=== PATIENT | male | born 1965 | race Caucasian/White ===

== ENCOUNTER 2024-03-20 11:08 | Inpatient (IN) | payer BC, OTHER ==
[2024-03-20 14:19] LABS: APPEARANCE,URINE CLOUDY (CLEAR); BILIRUBIN,URINE NEGATIVE (NEGATIVE); COLOR,URINE YELLOW (YELLOW); GLUCOSE,URINE NEGATIVE (NEGATIVE); KETONES,URINE NEGATIVE (NEGATIVE); LEUKOCYTE ESTERASE,URINE NEGATIVE (NEGATIVE); NITRITE,URINE NEGATIVE (NEGATIVE); OCCULT BLOOD,URINE NEGATIVE (NEGATIVE); PH,URINE 5.5 (5.0-8.0); PROTEIN,URINE 30 mg/dL (NEGATIVE); UROBILINOGEN,URINE 0.2 EU/dL (0.2-1.0)
[2024-03-20 14:27] LABS: AMORPHOUS SEDIMENT,URINE PACKED; BACTERIA,URINE RARE; EPITHELIAL CELLS,URINE RARE; MUCUS,URINE PACKED; RBC,URINE 0-5 (0-5); WBC,URINE 0-5 (0-5)
[2024-03-20] MEDS: Sodium Chloride 0.9% 1,000 ML IV SCH ×3 (14:35→23:38)
[2024-03-20] MEDS: Acetaminophen 325 MG Tab PO ONE (14:37)
[2024-03-20 14:45] LABS: BASOPHILS ABSOLUTE AUTO 0.08 K/uL (0.00-0.10); BASOPHILS PERCENT AUTO 0.4 % (0.1-1.3); HEMATOCRIT 42.3 % (38.4-49.7); HEMOGLOBIN 14.8 g/dL (12.9-16.9); IMMATURE GRAN ABSOLUTE AUTO 0.19 K/uL (0.00-0.23); IMMATURE GRAN PERCENT AUTO 0.9 % (0.0-0.7); LYMPHOCYTES ABSOLUTE AUTO 0.53 K/uL (0.8-3.3); LYMPHOCYTES PERCENT AUTO 2.6 % (11.4-47.7); MEAN CORPUSCULAR HEMOGLOBIN 31.6 pg (31.6-35.5); MEAN CORPUSCULAR VOLUME 90.4 fL (81.4-99.0); MONOCYTES ABSOLUTE AUTO 1.04 K/uL (0.20-0.90); NEUTROPHILS ABSOLUTE AUTO 18.89 K/uL (1.0-7.6); NEUTROPHILS PERCENT AUTO 91.1 % (40.0-78.1); PLATELET COUNT,PLT 279 K/uL (130-375); RED BLOOD CELL COUNT 4.68 M/uL (4.14-5.76); WHITE BLOOD CELL COUNT,WBC 20.7 K/uL (3.2-11.0)
[2024-03-20 15:05] LABS: A/G RATIO 0.9 (1.2-2.2); ALANINE AMINOTRANSFERASE,ALT 31 U/L (12-78); ALBUMIN 3.4 g/dL (3.4-5.0); ALKALINE PHOSPHATASE 67 U/L (46-116); ASPARTATE AMNIOTRANSFERASE,AST 15 U/L (15-37); BILIRUBIN TOTAL 1.9 mg/dL (0.2-1.0); BLOOD UREA NITROGEN,BUN 16 mg/dL (7-18); C-REACTIVE PROTEIN 6.29 mg/dL (<0.50); CALCIUM 8.2 mg/dL (8.5-10.1); CARBON DIOXIDE,CO2 24 mmol/L (21-32); CHLORIDE,CL 101 mmol/L (100-108); CREATININE 1.2 mg/dL (0.8-1.3); EST CRCL DRUG DOSING (CG) 64.92 mL/min; ESTIMATED GFR 70 mL/min (>60); GLUCOSE RANDOM 125 mg/dL (74-106); POTASSIUM,K 4.1 mmol/L (3.6-5.2); PROTEIN TOTAL,TP 7.4 g/dL (6.4-8.2); SODIUM,NA 137 mmol/L (140-148)
[2024-03-20 15:07] LABS: ANION GAP 16.1 mmol/L (5.0-14.0)
[2024-03-20 15:10] LABS: LACTIC ACID 2.6 mmol/L (0.4-2.0)
[2024-03-20] MEDS: Piperacillin/Tazobactam 4.5 GM in Sodium Chloride 0.9% 100 ML IV ONE (15:48)
[2024-03-20] MEDS ORDERED: Vancomycin 1 GM SDV IV SCH (16:00)
[2024-03-20] MEDS ORDERED: oxyCODONE 5 MG Tab PO PRN (16:59)
[2024-03-20] MEDS ORDERED: Sodium Chloride 0.9% 10 ML Syringe FLUSH PRN (16:59)
[2024-03-20] MEDS ORDERED: Polyethylene Glycol 3350 Powder 17 GM Packet PO PRN (16:59)
[2024-03-20] MEDS ORDERED: Ondansetron 4 MG/2 ML SDV IV PRN (16:59)
[2024-03-20] MEDS: Acetaminophen 325 MG Tab PO PRN (17:17)
[2024-03-20] MEDS: Vancomycin 2 GM in Sodium Chloride 0.9% 500 ML IV ONE (17:18)
[2024-03-20] MEDS: Piperacillin/Tazobactam 4.5 GM in Sodium Chloride 0.9% 100 ML IV SCH (20:08)
[2024-03-20] MEDS: Ibuprofen 200 MG Tab PO PRN (20:19)
[2024-03-20] MEDS: Melatonin 3 MG Tab PO PRN (20:19)
[2024-03-20] MEDS: Famotidine 20 MG Tab PO SCH (20:19)
[2024-03-20] MEDS: Rivaroxaban 10 MG Tab PO SCH (21:11)
[2024-03-20] MEDS: Carvedilol 12.5 MG Tab PO SCH (21:12)
[2024-03-21] MEDS: Water For Injection, Sterile 20 ML ONE (04:34)
[2024-03-21 05:57] LABS: CALCIUM 7.6 mg/dL (8.5-10.1); CREATININE 1.2 mg/dL (0.8-1.3); EST CRCL DRUG DOSING (CG) 65.16 mL/min; MAGNESIUM 1.7 mg/dL (1.8-2.4); POTASSIUM,K 3.7 mmol/L (3.6-5.2)
[2024-03-21 05:58] LABS: ANION GAP 13.7 mmol/L (5.0-14.0)
[2024-03-21] MEDS: atorvaSTATin 10 MG Tab PO SCH (08:30)
[2024-03-21] MEDS: Aspirin 81 MG Tab.Chew PO SCH (08:30)
[2024-03-21] MEDS: Losartan 50 MG Tab PO SCH (08:30)
[2024-03-21] MEDS ORDERED: Rivaroxaban 10 MG Tab PO SCH (09:00)
[2024-03-21] MEDS ORDERED: Carvedilol 12.5 MG Tab PO SCH (09:00)
[2024-03-21] MEDS: Magnesium Oxide 400 MG Tab PO SCH (09:38)
[2024-03-21] MEDS: Magnesium Sulfate/Water 2 GM in Premix Bag 1 BAG IV SCH (09:39)
[2024-03-21] MEDS ORDERED: Piperacillin/Tazobactam/Dext 4.5 GM in Premix Bag 1 BAG IV SCH (12:00)
[2024-03-21 13:29] LABS: HEMATOCRIT 35.8 % (38.4-49.7); HEMOGLOBIN 12.4 g/dL (12.9-16.9); MEAN CORPUSCULAR HEMOGLOBIN 31.2 pg (31.6-35.5); MEAN CORPUSCULAR HGB CONC 34.6 g/dL (31.6-35.5); MEAN CORPUSCULAR VOLUME 89.9 fL (81.4-99.0); RED BLOOD CELL COUNT 3.98 M/uL (4.14-5.76); WHITE BLOOD CELL COUNT,WBC 15.1 K/uL (3.2-11.0)
[2024-03-21] MEDS: ceFAZolin 1 GM in Premix Bag 1 BAG IV SCH (14:57)
[2024-03-22 05:44] LABS: ANION GAP 14.7 mmol/L (5.0-14.0); CALCIUM 7.9 mg/dL (8.5-10.1); CREATININE 1.1 mg/dL (0.8-1.3); EST CRCL DRUG DOSING (CG) 71.08 mL/min; MAGNESIUM 2.1 mg/dL (1.8-2.4); POTASSIUM,K 3.7 mmol/L (3.6-5.2)
[2024-03-22] MEDS: Doxycycline 100 MG in Sodium Chloride 0.9% 100 ML IV SCH (11:01)
[2024-03-22] MEDS: diphenhydrAMINE 25 MG Cap PO SCH (20:03)
[2024-03-23] MEDS: diphenhydrAMINE 25 MG Cap PO PRN (01:01)
[2024-03-23 02:10] LABS: HEMATOCRIT 33.8 % (38.4-49.7); HEMOGLOBIN 11.8 g/dL (12.9-16.9); MEAN CORPUSCULAR HEMOGLOBIN 31.1 pg (31.6-35.5); MEAN CORPUSCULAR HGB CONC 34.9 g/dL (31.6-35.5); MEAN CORPUSCULAR VOLUME 88.9 fL (81.4-99.0); RED BLOOD CELL COUNT 3.8 M/uL (4.14-5.76); WHITE BLOOD CELL COUNT,WBC 10.7 K/uL (3.2-11.0)
[2024-03-23 02:27] LABS: C-REACTIVE PROTEIN 13.32 mg/dL (<0.50); CALCIUM 7.8 mg/dL (8.5-10.1); CREATININE 1.2 mg/dL (0.8-1.3); EST CRCL DRUG DOSING (CG) 65.16 mL/min; POTASSIUM,K 3.6 mmol/L (3.6-5.2)
[2024-03-23 02:28] LABS: ANION GAP 12.6 mmol/L (5.0-14.0)
[2024-03-24] MEDS ORDERED: Furosemide 40 MG/4 ML VIAL IVPUSH ONE (09:49)
[2024-03-24] MEDS: Furosemide 20 MG/2 ML VIAL IVPUSH ONE ×2 (10:29→17:19)
[2024-03-25 05:21] LABS: HEMATOCRIT 36.7 % (38.4-49.7); HEMOGLOBIN 12.6 g/dL (12.9-16.9); MEAN CORPUSCULAR HEMOGLOBIN 30.7 pg (31.6-35.5); MEAN CORPUSCULAR HGB CONC 34.3 g/dL (31.6-35.5); MEAN CORPUSCULAR VOLUME 89.3 fL (81.4-99.0); RED BLOOD CELL COUNT 4.11 M/uL (4.14-5.76); WHITE BLOOD CELL COUNT,WBC 8.8 K/uL (3.2-11.0)
[2024-03-25 05:49] LABS: C-REACTIVE PROTEIN 6.18 mg/dL (<0.50); CALCIUM 8.4 mg/dL (8.5-10.1); CREATININE 1.1 mg/dL (0.8-1.3); EST CRCL DRUG DOSING (CG) 71.08 mL/min; POTASSIUM,K 3.4 mmol/L (3.6-5.2)
[2024-03-25 05:50] LABS: ANION GAP 14.4 mmol/L (5.0-14.0)
[2024-03-25] MEDS: Potassium Chloride 20 MEQ Tab.ER PO ONE (09:24)
[2024-03-25] MEDS: Doxycycline 100 MG Cap PO ONE (10:17)
== END 2024-03-25 10:55 | disposition home or self-care (01) | DRG 720 ==
LOC: JP.ED 11:08 → JP.MS 15:46
PROVIDERS: ADMIT Hospitalist; ATTEND Internal Medicine
DX: A41.9 Sepsis, unspecified organism (principal); L03.116 Cellulitis of left lower limb; E87.6 Hypokalemia; I25.10 Atherosclerotic heart disease of native coronary artery without angina pectoris; E66.9 Obesity, unspecified; Z91.041 Radiographic dye allergy status; Z79.82 Long term (current) use of aspirin; Z79.899 Other long term (current) drug therapy; Z79.01 Long term (current) use of anticoagulants; I25.2 Old myocardial infarction; Z95.5 Presence of coronary angioplasty implant and graft; Z86.711 Personal history of pulmonary embolism; Z98.890 Other specified postprocedural states; Z86.718 Personal history of other venous thrombosis and embolism; Z68.42 Body mass index [BMI] 45.0-49.9, adult
CPT/HCPCS: 36415; 71045; 71045-26; 80048; 80053; 81001; 83605; 83735; 85025; 85027; 85379; 86140; 87040; 96360; 99222; 99231; 99232; 99238; 99285; 99285-25; A9270-GY; J0689; J1940; J2543; J3370; J3475; J3490; J7030; J7040; J7050